=== PATIENT | female | born 1970 | race Caucasian/White ===

== ENCOUNTER 2017-07-01 00:51 | Emergency (ER) | payer MEDICAID ==
--- NOTE | 2017-07-01 01:07 | C.PDOC ---
History Of Present Illness Patient presents with sudden back pain radiating into the right groin. No f/c/n/ v. Sharp , stabbing pain., No dysuria Time Seen by Provider: 07/01/17 01:07 Chief Complaint (Nursing): Abdominal Pain History Per: Patient History/Exam Limitations: no limitations Onset/Duration Of Symptoms: Hrs Current Symptoms Are (Timing): Still Present Context: Other Severity: Moderate Pain Scale Rating Of: 5 Location Of Pain/Discomfort: RLQ Radiation Of Pain To:: Back Quality Of Discomfort: Sharp, Cramping, Stabbing Associated Symptoms: denies: Fever, Chills, Nausea, Vomiting Alleviating Factors: None Last Bowel Movement: Today Recent travel outside of the [place]: No Additional History Per: Family Abnormal Vaginal Bleeding: No Past Medical History Reviewed: Historical Data, Nursing Documentation, Vital Signs Vital Signs: Last Vital Signs Temp 98.3 F 07/01/17 03:47 Pulse 80 07/01/17 03:47 Resp 18 07/01/17 03:47 BP 124/77 07/01/17 03:47 Pulse Ox 99 07/01/17 03:47 - Medical History PMH: HTN Family History: States: No Known Family Hx - Social History Hx Tobacco Use: No Hx Alcohol Use: No Hx Substance Use: No - Immunization History Hx Tetanus Toxoid Vaccination: No Hx Influenza Vaccination: No Hx Pneumococcal Vaccination: No Review Of Systems Constitutional: Negative for: Fever, Chills Eyes: Negative for: Redness Cardiovascular: Negative for: Chest Pain Respiratory: Negative for: Shortness of Breath Gastrointestinal: Positive for: Abdominal Pain. Negative for: Nausea, Vomiting Genitourinary: Negative for: Dysuria Musculoskeletal: Positive for: Other (right flank pain) Skin: Negative for: Rash Neurological: Negative for: Weakness Psych: Negative for: Anxiety Physical Exam - Physical Exam Appears: Non-toxic, No Acute Distress Skin: Warm, Dry Head: Normacephalic Eye(s): bilateral: Normal Inspection Oral Mucosa: Moist Neck: Supple Chest: Symmetrical Cardiovascular: Rhythm Regular Respiratory: No Rales, No Rhonchi, No Wheezing Gastrointestinal/Abdominal: Soft, Tenderness (right flank), No Distention, No Guarding, No Rebound Back: CVA Tenderness (right lumbar region) Extremity: Normal ROM Extremity: Bilateral: Atraumatic, Normal Color And Temperature Pulses: Left Dorsalis Pedis: Normal, Right Dorsalis Pedis: Normal Neurological/Psych: Oriented x3, Normal Speech, Normal Cognition Gait: Steady ED Course And Treatment - Laboratory Results Result Diagrams: 07/01/17 01:33 07/01/17 01:33 O2 Sat by Pulse Oximetry: 100 Pulse Ox Interpretation: Normal Reevaluation Time: 04:44 Reassessment Condition: Improved Disposition Counseled Patient/Family Regarding: Studies Performed, Diagnosis, Need For Followup, Rx Given - Disposition Disposition: HOME/ ROUTINE Disposition Time: 01:07 Condition: FAIR Additional Instructions: 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
[2017-07-01 01:38] LABS: BASO # 0.1 K/uL (0.0-0.2); BASO % 0.9 % (0.0-2.0); EOS # 0.1 K/uL (0.0-0.7); EOS % 1.5 % (0.0-4.0); HEMATOCRIT 36.6 % (34.0-47.0); LYMPH % 34.9 % (20.0-40.0); MEAN CELL VOLUME 90.6 fL (81.0-99.0); MEAN CORPUSCULAR HGB CONC 34.2 g/dL (33.0-37.0); MEAN PLATELET VOLUME 9.8 fL (7.2-11.7); MONO # 0.5 K/uL (0.0-0.8); MONO % 9.1 % (0.0-10.0); NRBC % 0.1 % (0.0-2.0); RED CELL DISTRIBUTION WIDTH 12.7 % (11.5-14.5); WHITE BLOOD COUNT 5.6 K/uL (4.8-10.8)
[2017-07-01 01:46] LABS: CHLORIDE 99 mmol/L (98-107); SODIUM 137 mmol/L (132-148)
[2017-07-01 01:47] LABS: POTASSIUM 3.6 mmol/L (3.6-5.2)
[2017-07-01 01:48] LABS: GFR AFRICAN-AMERICAN > 60
[2017-07-01 01:49] LABS: ALB/GLOB RATIO 1.6 (1.0-2.1); ALKALINE PHOSPHATASE 61 U/L (38-126); ALT/SGPT 47 U/L (9-52); AST/SGOT 30 U/L (14-36); BILIRUBIN,TOTAL 0.6 mg/dL (0.2-1.3); BLOOD UREA NITROGEN 16 mg/dL (7-17); CARBON DIOXIDE 27 mmol/L (22-30); GLUCOSE,RANDOM 103 mg/dL (65-105); TOTAL PROTEIN 7.2 g/dL (6.3-8.3)
[2017-07-01 01:50] LABS: CALCIUM 8.7 mg/dl (8.6-10.4)
[2017-07-01 01:51] LABS: RBC URINE < 1 /hpf (0-3); URINE BILIRUBIN NEGATIVE (NEGATIVE); URINE COLOR Straw (YELLOW); URINE GLUCOSE (UA) NORMAL (Normal); URINE KETONE NEGATIVE (NEGATIVE); URINE LEUKOCYTE ESTERASE NEG Leu/uL (Negative); URINE PROTEIN NEGATIVE (NEGATIVE); URINE UROBILINOGEN NORMAL mg/dL (0.2-1.0); WBC URINE 3 /hpf (0-5)
[2017-07-01 01:52] LABS: URINE BLOOD NEGATIVE (NEGATIVE)
[2017-07-01] MEDS ORDERED: Iodixanol 320 MG/ML 100 ML BOTTLE IV ONE (02:12)
--- NOTE | 2017-07-01 02:37 | CT ---
EXAM: CT Abdomen and Pelvis With Intravenous Contrast CLINICAL HISTORY: 47 years old, female; Pain; Abdominal pain; Localized; Right lower quadrant (rlq); Additional info: Rlq pain TECHNIQUE: Axial computed tomography images of the abdomen and pelvis with intravenous contrast. All CT scans at this facility use one or more dose reduction techniques, viz.: automated exposure control; ma/kV adjustment per patient size (including targeted exams where dose is matched to indication; i.e. head); or iterative reconstruction technique. Coronal and sagittal reformatted images were created and reviewed. CONTRAST: 100 mL of [id number] administered intravenously. COMPARISON: No relevant prior studies available. FINDINGS: Lower thorax: The bilateral lung bases are clear. ABDOMEN: Liver: No acute findings. Gallbladder and bile ducts: The gallbladder is decompressed. No calcified stones. No significant intra- or extrahepatic biliary ductal dilation. Pancreas: Enhances homogeneously. No ductal dilation. No discrete mass. Spleen: No acute findings. Adrenals: No acute findings. Kidneys and ureters: No acute findings. No hydronephrosis or renal calculi. No discrete solid mass. PELVIS: Bladder: No acute findings. Reproductive: The uterus is enlarged and nodular, containing multiple areas of decreased attenuation suggesting fibroid disease, for which dedicated ultrasound may be performed for confirmation. Appendix: The air filled appendix is of normal caliber (series 2, image 47; series 601, image 49). ABDOMEN and PELVIS: Stomach and bowel: No obstruction. No mucosal thickening. Peritoneum: No significant fluid collection. No free air. Lymph nodes: No pathologically enlarged lymph nodes. Vasculature: Unremarkable. Bones: No acute fracture. IMPRESSION: Findings suggestive of fibroid disease, for which a dedicated pelvic ultrasound may be performed for confirmation (if the patient is clinically able). Normal appendix.
--- NOTE | 2017-07-01 03:58 | US ---
EXAM: US Pelvis Complete, Transabdominal US Pelvis, Transvaginal EXAM DATE/TIME: 07/01/2017 2:40 AM CLINICAL HISTORY: 47 years old, female; Pain; Pelvic pain; Prior surgery; Surgery date: 6+ months; Surgery type: 2 c- sections; Additional info: Fibroids, asevere pain TECHNIQUE: Real-time transabdominal and transvaginal pelvic ultrasound (complete) with image documentation. Transvaginal imaging was used for better evaluation of the endometrium and adnexa. COMPARISON: Recent pelvic CT. FINDINGS: Limitations: Overall suboptimal visualization, due to bowel gas. Uterus: Measures 10.1 x 5.8 x 7 cm. Uterine myometrium appears heterogeneous, which could be secondary to diffuse fibroid of placement. There are multiple rounded uterine masses seen, most compatible with multiple uterine fibroids. Size and location of the largest fibroids seen is as follows: a 4.7 x 4.3 x 4.2 cm right fundal fibroid, subserosal in location and exophytic; a 2.8 x 2.4 x 1.9 cm anterior fundal fibroid, subserosal in location and mildly exophytic; a 1.8 x 1.6 x 1.0 cm left anterior fibroid, intramural in location. Endometrial stripe does not appear abnormally thickened, measuring 6.2 mm. Right ovary: Could not be visualized, due to bowel gas. Left ovary: Could not be visualized, due to bowel gas Cul-de-sac: No free fluid. IMPRESSION: Multiple uterine fibroids, described in detail above. Limited exam due bowel gas. Ovaries could not be visualized. See above for remaining findings.
[2017-07-01 05:01] VITALS: BP 126/72; PULSE 79; RESP 20; TEMP 97.8; O2SAT 99
== END 2017-07-01 05:01 | disposition home or self-care (01) ==
LOC: C.ER 00:51
DX: D25.9 Leiomyoma of uterus, unspecified (principal); R10.31 Right lower quadrant pain
CPT/HCPCS: 74177; 76830; 76856; 80053; 81001; 84703; 85025; 96374; 99285; J1885; Q9967